=== PATIENT | male | born 1960 | race Two or more races ===

== ENCOUNTER 2019-11-01 01:09 | Emergency (ER) | payer BC ==
[~2019-11-01] VITALS: Ht 154.9 cm; Wt 95.5 kg
[2019-11-01] MEDS ORDERED: TRANEXAMIC ACID 1,000 MG/10 ML VIAL IVP ONE (01:45)
[2019-11-01] MEDS ORDERED: OXYMETAZOLINE HCL 0.05% 15 ML NASAL SPRAY NASAL ONE (01:45)
[2019-11-01 03:34] VITALS: BP 140/77
== END 2019-11-01 03:51 | disposition home or self-care (01) ==
LOC: EMS 01:10
DX: R04.0 Epistaxis (principal); E11.9 Type 2 diabetes mellitus without complications
CPT/HCPCS: 96374; 99283; J3490; 30901

== ENCOUNTER → 2019-11-15 | Emergency (ER) | payer BC ==
[~2019-11-15] VITALS: Ht 165.1 cm; Wt 90.9 kg
[~2019-11-15] MED LIST: CefTRIAXone 1 GM/DEXTROSE 50 ML IV ONE; INSULIN REGULAR, HUMAN 100 UNITS/ML IVP ONE; SODIUM CHLORIDE 0.9% 1,000 ML IV ONE
[2019-11-15 15:03] LABS: BASOPHILS % (AUTO) 0.3 % (0.0-2.0); EOSINOPHILS % (AUTO) 2.3 % (1.0-6.0); HEMATOCRIT 22.4 % (41-53); LYMPHOCYTES # (AUTO) 0.7 K/uL (1.0-4.8); LYMPHOCYTES % (AUTO) 8.2 % (22.0-44.0); MEAN CORPUSCULAR HEMOGLOBIN 34.1 pg (26.0-34.0); MEAN CORPUSCULAR HGB CONC 35.7 G/dL (31.0-37.0); MEAN CORPUSCULAR VOLUME 96 fL (80-100); MONOCYTES # (AUTO) 0.6 K/uL (0.1-1.0); MONOCYTES % (AUTO) 7.5 % (2.0-9.0); NEUTROPHILS % (AUTO) 81.7 % (40.0-70.0); PLATELET COUNT (AUTO) 227 K/uL (150-450); RED BLOOD CELL COUNT(AUTO) 2.35 MIL/uL (4.50-5.90); RED CELL DISTRIBUTION WIDTH 12.8 % (11.5-14.5)
[2019-11-15 15:12] LABS: CALCIUM, TOTAL 8.3 mg/dL (8.8-10.5); CREATININE 4.09 mg/dL (0.60-1.30); POTASSIUM 4.1 mmol/L (3.5-5.1)
[2019-11-15 15:19] LABS: ALBUMIN 2.8 g/dL (3.4-5.0); BILIRUBIN,TOTAL 0.6 mg/dL (0.1-1.0); TOTAL PROTEIN, SERUM 6.5 g/dL (6.4-8.2)
[2019-11-15 15:49] LABS: PROTHROMBIN TIME 10.9 SEC (9.4-11.6)
[2019-11-15 16:55] LABS: GLUCOSE,POINT OF CARE 365 MG/DL (70-110)
[2019-11-15 17:29] LABS: APPEARANCE,URINE CLOUDY (CLEAR); BILIRUBIN,URINE NEGATIVE (NEGATIVE); GLUCOSE, URINE (UA) 500 mg/dL (NEGATIVE); KETONES,URINE NEGATIVE (NEGATIVE); LEUKOCYTE ESTERASE ,URINE TRACE (NEGATIVE); NITRATE,URINE NEGATIVE (NEGATIVE); OCCULT BLOOD,URINE LARGE (NEGATIVE); PROTEIN,URINE SEE CONFIRM (NEGATIVE); UROBILINOGEN,URINE 0.2 mg/dL (<=1.0)
[2019-11-15 17:52] LABS: SULFOSALICYLIC ACID,URINE 3+ (Negative)
[2019-11-15 17:53] LABS: RBC,URINE >100 /HPF (0-2)
[2019-11-15 17:54] LABS: BACTERIA,URINE Moderate /HPF (None Seen); SQUAMOUS EPITHELIAL CELL,UR Few /LPF (None Seen)
[2019-11-15 17:55] LABS: AMORPHOUS SEDIMENT,UR Few /LPF (None Seen)
[2019-11-15 18:19] LABS: GLUCOSE,POINT OF CARE 187 MG/DL (70-110)
[2019-11-15 20:25] VITALS: BP 151/88
== END | disposition home or self-care (01) ==
LOC: EMS 14:07
DX: Z03.818 Encounter for observation for suspected exposure to other biological agents ruled out (principal); N39.0 Urinary tract infection, site not specified; E86.0 Dehydration; E11.65 Type 2 diabetes mellitus with hyperglycemia; N17.9 Acute kidney failure, unspecified; I10 Essential (primary) hypertension
CPT/HCPCS: 36415; 71045; 80053; 81001; 82550; 82962; 83880; 84484; 85025; 85610; 85730; 87086; 93005; 96361; 96365; 96375; 99285; J0696; J1815; U0003